=== PATIENT | female | born 1950 | race Caucasian/White ===

== ENCOUNTER 2017-02-07 12:14 | Emergency (ER) | payer MEDICARE, OTHER ==
[2017-02-07 12:34] VITALS: TEMP 98.5
--- NOTE | 2017-02-07 13:16 | ED PDOC ---
Arrival/HPI - General Chief Complaint: Trauma Time Seen by Provider: 02/07/17 12:58 Historian: Patient - History of Present Illness Narrative History of Present Illness (Text): 02/07/17 13:14 66 year old female presents to the emergency department after mechanical fall prior to arrival. Patient states she was out for a walk when she tripped on an uneven curb and fell forward and hit her head. No loss of consciousness. Patient is complaining of deformity and pain to the left hand at the 4th and 5th fingers. No anticoagulant use. Patient reports tetanus is up to date. Denies headache, neck pain, chest pain, shortness of breath, leg pain, dizziness , nausea, vomiting, abdominal pain, or other symptoms. Time/Duration: Prior to Arrival Symptom Onset: Sudden Symptom Course: Unchanged Modifying Factors (Text): None Associated Symptoms (Text): None Past Medical History - Provider Review Nursing Documentation Reviewed: Yes - Infectious Disease Hx of Infectious Diseases: None - Psychiatric Hx Substance Use: No - Surgical History Hx Appendectomy: Yes Family/Social History - Physician Review Nursing Documentation Reviewed: Yes Family/Social History: Unknown Family HX Smoking Status: Never Smoked Hx Alcohol Use: No Hx Substance Use: No Allergies/Home Meds Allergies/Adverse Reactions: Allergies Penicillins Allergy (Verified 02/07/17 12:27) ANAPHYLAXIS Home Medications: Home Meds Medication Instructions Recorded Confirmed No Known Home Med 02/07/17 02/07/17 Review of Systems - Review of Systems Eyes: absent: Vision Changes ENT: absent: Hearing Changes Respiratory: absent: SOB Cardiovascular: absent: Chest Pain Gastrointestinal: absent: Abdominal Pain, Vomiting Genitourinary Female: absent: Dysuria, Frequency, Hematuria Musculoskeletal: Other (Left 4th and 5th finger pain). absent: Back Pain, Neck Pain Skin: absent: Rash Neurological: absent: Headache Endocrine: absent: Diaphoresis Hemo/Lymphatic: absent: Easy Bleeding Psychiatric: absent: Depression Physical Exam Vital Signs Reviewed: Yes Vital Signs Temp Pulse Resp BP Pulse Ox 02/07/17 14:14 61 17 121/60 98 02/07/17 12:24 98.5 F 64 18 106/68 99 Temperature: Afebrile Blood Pressure: Normal Pulse: Regular Respiratory Rate: Normal Appearance: Positive for: Well-Appearing, Non-Toxic, Comfortable Pain Distress: Mild Mental Status: Positive for: Alert and Oriented X 3 - Systems Exam Head: Present: Normocephalic, Abrasion (Small abrasion to the left eyebrow), Other (No bony tenderness. No hematoma on the head. ) Pupils: Present: PERRL Extroacular Muscles: Present: EOMI Conjunctiva: Present: Normal Mouth: Present: Moist Mucous Membranes Neck: Present: Normal Range of Motion. No: MIDLINE TENDERNESS Respiratory/Chest: Present: Clear to Auscultation, Good Air Exchange. No: Respiratory Distress, Accessory Muscle Use Cardiovascular: Present: Regular Rate and Rhythm, Normal S1, S2. No: Murmurs Abdomen: Present: Normal Bowel Sounds. No: Tenderness, Distention, Peritoneal Signs Back: Present: Normal Inspection. No: Midline Tenderness Upper Extremity: Present: NORMAL PULSES, Deformity (Deformity of the 5th digit of the left hand consistent with dislocation). No: Cyanosis, Edema Lower Extremity: Present: Normal Inspection, NORMAL PULSES, Normal ROM. No: Edema, Swelling Neurological: Present: GCS=15, CN II-XII Intact, Speech Normal Skin: Present: Warm, Dry, Normal Color. No: Rashes Psychiatric: Present: Alert, Oriented x 3, Normal Insight, Normal Concentration Medical Decision Making ED Course and Treatment: Impression: 66 year old female presents with left 4th and 5th finger deformity and pain s/p mechanical fall prior to arrival. Differential Diagnosis include but are not limited to: Dislocation vs fracture Plan: Will obtain CT of the head and XR's of the left wrist and left hand, and give Morphine. Progress Notes: 02/07/17 14:[address]: Creator : Zhang Sanchez MD COMPARISON: None available. FINDINGS: HEMORRHAGE: No intracranial hemorrhage. BRAIN: No intracranial mass. Minimal age-appropriate diffuse atrophy. VENTRICLES: Unremarkable. No hydrocephalus. CALVARIUM: In the left occipital calvarium, there is lytic lesion which has smooth non sclerotic borders. It measures 1.7 cm in greatest dimension. There is absence of the inner table of the calvarium overlying this lesion. This may indicate a very slow growing lesion. There is no periosteal reaction nor surrounding sclerosis. There is scalloping of the outer table without expansion. The appearance is nonspecific. Despite the loss of the inner table of the calvarium, this is likely a slow growing lesion. Nevertheless, further evaluation with gadolinium enhanced magnetic resonance imaging is advised on a nonemergent basis. No other lytic calvarial lesion is identified. PARANASAL SINUSES: Unremarkable as visualized. No significant inflammatory changes. MASTOID AIR CELLS: Unremarkable as visualized. No inflammatory changes. OTHER FINDINGS: None. IMPRESSION: Lytic left occipital calvarial lesion with a nonaggressive appearance. However, evaluation with gadolinium enhanced magnetic resonance imaging is advised on a nonemergent basis. No intracranial hemorrhage. The remainder of lthe examination is unremarkable. 02/07/17 14:41 Left Wrist X-ray: Creator : Zhang Sanchez MD COMPARISON: None. FINDINGS: BONES: No fracture. JOINTS: Dislocation at the 5th carpal -metacarpal articulation. The remaining joint spaces and articular surfaces are preserved. SOFT TISSUES: Soft tissue swelling of the hypothenar region OTHER FINDINGS: None. IMPRESSION: Dislocation at 5th carpal -metacarpal articulation. No osseous fracture. Left Hand X-ray: Creator : Zhang Sanchez MD COMPARISON: None. FINDINGS: BONES: Normal. No fracture. JOINTS: Dislocation at 5th carpal -metacarpal articulation. The remaining joint spaces and articular surfaces are preserved. SOFT TISSUES: Hypothenar soft tissue swelling. OTHER FINDINGS: None. IMPRESSION: Dislocation at 5th carpal -metacarpal articulation. No fracture identified. Patient aware of results and will follow up outpatient for a MRI. Reduction performed by resident with attending at bedside. Patient sent for post reduction imaging. 02/07/17 15:13 Post reduction xray shows fracture (prior xray reviewed and also shows previous fracture). Paged Dr. Mott, ortho hand. 02/07/17 15:30 Repeat Left Hand X-ray: Creator : Zhang Sanchez MD COMPARISON: 02/07/2017 at 1:23 p.m. FINDINGS: BONES: Status post successful close reduction of dislocation 5th carpal - metacarpal articulation. There is a mildly displaced fracture at the base of the 5th metacarpal, along its radial aspect. This was not evident on the original examination. There is no other fracture identified. . JOINTS: As above. Remaining joint spaces and articular surfaces are preserved. SOFT TISSUES: Normal. OTHER FINDINGS: None. IMPRESSION: Status post close reduction of 5th carpal-metacarpal articulation. Mildly displaced longitudinal fracture at the radial base of the 5th metacarpal noted. 02/07/17 16:11 Dr. Mott agrees with [facility] and follow-up in his office - RAD Interpretation Radiology Orders: 02/07/17 12:58 HEAD W/O CONTRAST [CT] Stat HAND LEFT 3 VIEWS ROUTINE [RAD] Stat 02/07/17 12:59 WRIST, LEFT 3 VIEWS [RAD] Stat 02/07/17 14:29 HAND LEFT 3 VIEWS ROUTINE [RAD] Stat - Medication Orders Current Medication Orders: Discontinued Medications Morphine Sulfate (Morphine) 6 mg IVP STAT STA Stop: 02/07/17 13:00 Last Admin: 02/07/17 13:11 Dose: 6 MG IVP Administration Document 02/07/17 13:11 ALA (Rec: 02/07/17 13:11 ALA [id number]) Charges for Administration # of IVP Administrations 1 Morphine Sulfate (Morphine) 6 mg IVP STAT STA Stop: 02/07/17 14:16 Last Admin: 02/07/17 14:24 Dose: 6 MG MAR Pain Assessment Document 02/07/17 14:24 ALA (Rec: 02/07/17 14:24 ALA [id number]) Pain Reassessment Is this a pain reassessment? No IVP Administration Document 02/07/17 14:24 ALA (Rec: 02/07/17 14:24 ALA [id number]) Charges for Administration # of IVP Administrations 1 - Scribe Statement The provider has reviewed the documentation as recorded by the Angelita Bell Provider Scribe Attestation: All medical record entries made by the Scribe were at my direction and personally dictated by me. I have reviewed the chart and agree that the record accurately reflects my personal performance of the history, physical exam, medical decision making, and the department course for this patient. I have also personally directed, reviewed, and agree with the discharge instructions and disposition. Disposition/Present on Arrival - Present on Arrival Any Indicators Present on Arrival: No History of DVT/PE: No History of Uncontrolled Diabetes: No Urinary Catheter: No History of Decub. Ulcer: No History Surgical Site Infection Following: None - Disposition Have Diagnosis and Disposition been Completed?: Yes Diagnosis: Metacarpal bone fracture, Finger dislocation Disposition: HOME/ ROUTINE Disposition Time: 15:12 Patient Plan: Discharge Patient Problems: Current Active Problems Problem Status Diagnosed Finger dislocation Acute Metacarpal bone fracture Acute Condition: GOOD Discharge Instructions (ExitCare): Finger Fracture (ED), Finger Dislocation (ED ) Additional Instructions: Follow up with Dr. Sanford in his office. Keep keily tape in place. Follow-up for lytic lesion in MRI Referrals: PCP,NO [Primary Care Provider] - Follow up with primary
[2017-02-07] MEDS ORDERED: Morphine 4 mg/ml ISec IVP STA (14:15)
--- NOTE | 2017-02-07 14:20 | CT ---
PROCEDURE: CT HEAD WITHOUT CONTRAST. HISTORY: head injury COMPARISON: None available. TECHNIQUE: Axial computed tomography images were obtained through the head/brain without intravenous contrast. Radiation dose: Total exam DLP = 677.45 mGy-cm. FINDINGS: HEMORRHAGE: No intracranial hemorrhage. BRAIN: No intracranial mass. Minimal age-appropriate diffuse atrophy. VENTRICLES: Unremarkable. No hydrocephalus. CALVARIUM: In the left occipital calvarium, there is lytic lesion which has smooth non sclerotic borders. It measures 1.7 cm in greatest dimension. There is absence of the inner table of the calvarium overlying this lesion. This may indicate a very slow growing lesion. There is no periosteal reaction nor surrounding sclerosis. There is scalloping of the outer table without expansion. The appearance is nonspecific. Despite the loss of the inner table of the calvarium, this is likely a slow growing lesion. Nevertheless, further evaluation with gadolinium enhanced magnetic resonance imaging is advised on a nonemergent basis. No other lytic calvarial lesion is identified. PARANASAL SINUSES: Unremarkable as visualized. No significant inflammatory changes. MASTOID AIR CELLS: Unremarkable as visualized. No inflammatory changes. OTHER FINDINGS: None. IMPRESSION: Lytic left occipital calvarial lesion with a nonaggressive appearance. However, evaluation with gadolinium enhanced magnetic resonance imaging is advised on a nonemergent basis. No intracranial hemorrhage. The remainder of lthe examination is unremarkable.
--- NOTE | 2017-02-07 14:40 | RAD ---
PROCEDURE: Left Hand Radiographs. HISTORY: attn to 4th and 5th digit- deforlikely dislocation COMPARISON: None. FINDINGS: BONES: Normal. No fracture. JOINTS: Dislocation at 5th carpal -metacarpal articulation. The remaining joint spaces and articular surfaces are preserved. SOFT TISSUES: Hypothenar soft tissue swelling. OTHER FINDINGS: None. IMPRESSION: Dislocation at 5th carpal -metacarpal articulation. No fracture identified.
--- NOTE | 2017-02-07 14:41 | RAD ---
PROCEDURE: Left Wrist Radiographs. HISTORY: l wrist pain after fall COMPARISON: None. FINDINGS: BONES: No fracture. JOINTS: Dislocation at the 5th carpal -metacarpal articulation. The remaining joint spaces and articular surfaces are preserved. SOFT TISSUES: Soft tissue swelling of the hypothenar region OTHER FINDINGS: None. IMPRESSION: Dislocation at 5th carpal -metacarpal articulation. No osseous fracture.
--- NOTE | 2017-02-07 15:29 | RAD ---
PROCEDURE: Left Hand Radiographs. HISTORY: post reduction film COMPARISON: 02/07/2017 at 1:23 p.m. FINDINGS: BONES: Status post successful close reduction of dislocation 5th carpal -metacarpal articulation. There is a mildly displaced fracture at the base of the 5th metacarpal, along its radial aspect. This was not evident on the original examination. There is no other fracture identified. . JOINTS: As above. Remaining joint spaces and articular surfaces are preserved. SOFT TISSUES: Normal. OTHER FINDINGS: None. IMPRESSION: Status post close reduction of 5th carpal-metacarpal articulation. Mildly displaced longitudinal fracture at the radial base of the 5th metacarpal noted.
[2017-02-07 16:18] VITALS: BP 118/64; PULSE 68; RESP 16; O2SAT 100
== END 2017-02-07 16:18 | disposition home or self-care (01) ==
LOC: ED 12:14
DX: S63.055A Dislocation of other carpometacarpal joint of left hand, initial encounter (principal); S62.307A Unspecified fracture of fifth metacarpal bone, left hand, initial encounter for closed fracture; W01.0XXA Fall on same level from slipping, tripping and stumbling without subsequent striking against object, initial encounter; Y92.89 Other specified places as the place of occurrence of the external cause
CPT/HCPCS: 26670; 70450; 73110; 73130; 96374; 96376; 99284; J2270